=== PATIENT | female | born 1970 | race Caucasian/White ===

== ENCOUNTER 2022-04-29 02:38 | Emergency (ER) | payer SELFPAY ==
[~2022-04-29] VITALS: Ht 160 cm; Wt 125.0 kg
[2022-04-29 02:59] VITALS: BP 138/79
[2022-04-29] MEDS ORDERED: ACET-2708 MT (11:49)
== END 2022-04-29 07:50 | disposition left against medical advice (07) ==
LOC: ER 03:14
DX: Z53.21 Procedure and treatment not carried out due to patient leaving prior to being seen by health care provider (principal)

== ENCOUNTER 2022-04-29 10:06 | Emergency (ER) | payer SELFPAY ==
[~2022-04-29] VITALS: Ht 160 cm; Wt 125.0 kg
[2022-04-29 10:08] VITALS: BP 130/74
[2022-04-29] MEDS ORDERED: ACETAMINOPHEN 325MG TABLET PO ONE (10:30)
[2022-04-29] MEDS ORDERED: ACET-2708 MT (11:49)
== END 2022-04-29 12:12 | disposition home or self-care (01) ==
LOC: ER 10:06
DX: M25.572 Pain in left ankle and joints of left foot (principal); X50.1XXA Overexertion from prolonged static or awkward postures, initial encounter; Y93.89 Activity, other specified; Y92.89 Other specified places as the place of occurrence of the external cause
CPT/HCPCS: 99281